=== PATIENT | male | born 1950 ===

== ENCOUNTER → 2018-07-10 21:25 | Outpatient (REF) | payer OTHER, SELFPAY ==
[2018-07-10 22:04] LABS: Alanine Aminotransferase 72 IU/L (21-72); Albumin 4.6 g/dL (3.5-5.0); Albumin Globulin Ratio 1.8 (1.0-2.8); Alkaline Phosphatase 68 U/L (38-126); Aspartate Aminotransferase 46 IU/L (17-59); BUN Creatinine Ratio 17.8 (6-22); Bilirubin Total 0.9 mg/dL (0.2-1.3); Blood Urea Nitrogen 16 mg/dL (9-20); Calcium 11.1 mg/dL (8.4-10.2); Carbon Dioxide 29 mmol/L (22-32); Chloride 105 mmol/L (98-107); Estimated Glomerular Filt Rate > 60.0 mL/min (>60); Globulin 2.5 g/dL (1.7-4.1); Glucose 109 mg/dL (80-110); HEMOLYSIS 17 (0-50); Potassium 4.9 mmol/L (3.4-5.1); Sodium 146 mmol/L (137-145); Total Protein 7.1 g/dL (6.3-8.2)
[2018-07-10 22:12] LABS: Hemoglobin A1C% w Est Avg Glu 5.9 % (4.0-6.0)
== END ==
LOC: LAB 21:25
PROVIDERS: Visit Provider Naturopath
DX: Z01.818 Encounter for other preprocedural examination (principal); R73.03 Prediabetes; E83.52 Hypercalcemia
CPT/HCPCS: 80053; 83036

== ENCOUNTER → 2018-07-20 21:16 | Outpatient (REF) | payer OTHER, SELFPAY ==
[2018-07-20 21:54] LABS: Vitamin D 25 Hydroxy (D3) 63.5 ng/mL (30.0-100.0)
[2018-07-24 14:10] LABS: Parathyroid Hormone Int 52 pg/mL (14-64)
== END ==
LOC: LAB 21:16
PROVIDERS: Visit Provider Naturopath
DX: E83.52 Hypercalcemia (principal)
CPT/HCPCS: 82306; 83970